=== PATIENT | female | born 1985 ===

== ENCOUNTER 2016-12-02 09:46 | Emergency (ER) | payer SELFPAY ==
[2016-12-02] MEDS ORDERED: Ondansetron 4 MG/2 ML SDV IVPUSH ONE ×2 (10:27→14:50)
[2016-12-02] MEDS ORDERED: Sodium Chloride 0.9% 10 ML Syringe FLUSH PRN (10:27)
[2016-12-02] MEDS ORDERED: Famotidine 20 MG/2 ML SDV IVPUSH ONE (10:27)
[2016-12-02] MEDS ORDERED: Sodium Chloride 0.9% 1,000 ML IV SCH (10:30)
[2016-12-02] MEDS: HYDROmorphone 1 MG/ML Syringe IM ONE ×2 (11:05→11:08)
[2016-12-02] MEDS ORDERED: HYDROmorphone 1 MG/ML Syringe IVPUSH ONE (11:08)
[2016-12-02] MEDS ORDERED: Metoclopramide 10 MG/2 ML SDV IVPUSH ONE (12:07)
--- NOTE | 2016-12-02 14:20 | US ---
Pelvic ultrasound: Multiple real-time images were obtained both transabdominally and transvaginally. Uterus is anteverted. Small exophytic lesion is seen off the uterine fundus which is felt compatible with subserosal fibroid measuring approximately 3.7 cm. Moderate amount of free fluid is seen within the pelvis. No discrete cyst or solid abnormality appreciated within the ovaries. Incidental nabothian cysts are present. Measurements: Uterus: Length 8.4 cm, AP height 4.6 cm , transverse with 5.8 cm Right ovary: 6.4 x 2.1 x 3.8 cm Left ovary: 3.8 x 2.6 x 2.5 cm Impression: 1. Moderate amount of free fluid within the pelvis. Etiology not seen but findings most likely represent nonvisualized ruptured cyst. 2. Incidental nabothian cyst. 3. 3.7 cm subserosal fundal fibroid. Diagnostic code #3
--- NOTE | 2016-12-02 14:46 | EDM.PDOC ---
ED HPI GI/ABDOMINAL - General Chief Complaint: Abdominal Pain Stated Complaint: LOWER ABDOMINAL PAIN Time Seen by Provider: 12/02/16 10:19 Source of Information: Reports: Patient, RN notes reviewed - History of Present Illness INITIAL COMMENTS - FREE TEXT/NARRATIVE: 31-year-old female comes in with pelvic and abdominal pain. This started last evening, got worse through the night and quite severe now this morning. She did take a pain pill last evening and then did take a pain pill again this morning. SHe has become nauseated this morning with some repetitive vomiting. The pain seemed to start right lower pelvis are now also having pain upper mid abdomen and left upper quadrant of abdomen. No chest pain or difficulty breathing. No fever or chills. No diarrhea. No unusual voiding symptomatology. Her last menstrual period about 2 weeks ago. - Related Data Allergies/ADRs: Allergies Allergy/AdvReac Type Severity Reaction Status Date / Time No Known Allergies Allergy Verified 12/02/16 10:07 Home Meds: Home Meds Warfarin [Coumadin] 2.5 mg PO DAILY 07/05/15 [History] Warfarin [Coumadin] 5 mg PO WEEKLY 07/05/15 [History] Lasix. 40 mg PO DAILY 09/08/15 [History] Hydrocodone/Acetaminophen [Hydrocodon-Acetaminophen 5-325] 1 tab PO TID PRN 08/20 [History] Ondansetron [Zofran ODT] 4 mg PO Q6H PRN #10 tab.dis 12/02/16 [Rx] Past Medical History Cardiovascular History: Reports: Heart Failure, Pacemaker Gastrointestinal History: Reports: Cholelithiasis Genitourinary History: Reports: Other (see below) Other Genitourinary History: "fibroids and cysts on both ovaries" PER DIEM RN History: Reports: - Infectious Disease History Infectious Disease History: Reports: Chicken pox - Past Surgical History Cardiovascular Surgical History: Reports: Valve replacement Social & Family History - Family History Family Medical History: Noncontributory - Tobacco Use Smoking Status *Q: Never Smoker Second Hand Smoke Exposure: No - Caffeine Use Caffeine Use: Reports: Coffee - Recreational Drug Use Recreational Drug Use: No ED ROS GENERAL - Review of Systems Review Of Systems: See Below Constitutional: Denies: fever, chills, diaphoresis HEENT: Reports: No symptoms Respiratory: Denies: Shortness of Breath, Pleuritic Chest Pain Cardiovascular: Denies: Chest pain GI/Abdominal: Reports: Abdominal pain, Nausea, Vomiting. Denies: Diarrhea, Hematochezia, Melena Musculoskeletal: Denies: shoulder pain, back pain, joint pain Skin: Reports: no symptoms Neurological: Reports: No Symptoms ED EXAM, GI/ABD - Physical Exam Exam: See Below General Appearance: alert, moderate distress Eyes: bilateral: normal appearance, EOMI Throat/Mouth: Normal inspection, Normal oropharynx Head: atraumatic. No: facial swelling Neck: supple, full range of motion Respiratory/Chest: no respiratory distress, lungs clear, normal breath sounds Cardiovascular: regular rate, rhythm GI/Abdominal: tenderness (Moderate tenderness left upper quadrant upper midabdomen, more severe tenderness right pelvis). No: guarding, rebound Extremities: normal inspection, normal range of motion. No: pedal edema, leg pain Course - Vital Signs Last Recorded V/S: Last Vital Signs Temp 97.1 F 12/02/16 10:01 Pulse 79 12/02/16 10:01 Resp 16 12/02/16 10:01 BP 124/92 H 12/02/16 10:01 Pulse Ox 98 12/02/16 10:01 - Orders/Labs/Meds Orders: Active Orders 24 hr Category Date Time Status Peripheral IV Care [RC] . DIRECTED Care 12/02/16 10:28 Active Sodium Chloride 0.9% [Normal Saline] 1,000 ml Med 12/02/16 10:30 Active IV ONETIME Sodium Chloride 0.9% [Saline Flush] Med 12/02/16 10:27 Active 10 ml FLUSH ASDIRECTED PRN Peripheral IV Insertion Adult [OM.PC] Stat Oth 12/02/16 10:27 Ordered Medication Orders Sodium Chloride (Normal Saline) 1,000 mls @ 999 mls/hr IV ONETIME [facility] Last Admin: 12/02/16 11:02 Dose: 999 mls/hr Sodium Chloride (Saline Flush) 10 ml FLUSH ASDIRECTED PRN PRN Reason: Keep Vein Open Last Admin: 12/02/16 11:14 Dose: 10 ml Labs: Laboratory Tests 12/02/16 12/02/16 12/02/16 Range/Units 11:00 11:00 11:00 WBC 9.71 (3.98-10.04) K/mm3 RBC 4.23 (3.98-5.22) M/mm3 Hgb 10.5 L (11.2-15.7) gm/L Hct 33.2 L (34.1-44.9) % MCV 78.5 L (79.4-94.8) fl MCH 24.8 L (25.6-32.2) pg MCHC 31.6 L (32.2-35.5) g/dl RDW Std Deviation 48.7 H (36.4-46.3) fL Plt Count 270 (182-369) K/mm3 MPV 10.4 (9.4-12.3) fl Neut % (Auto) 76.7 H (34.0-71.1) % Lymph % (Auto) 12.3 L (19.3-51.7) % [place] % (Auto) 9.6 (4.7-12.5) % Eos % (Auto) 1.1 (0.7-5.8) Baso % (Auto) 0.2 (0.1-1.2) % Neut # (Auto) 7.45 H (1.56-6.13) K/mm3 Lymph # (Auto) 1.19 (1.18-3.74) K/mm3 [place] # (Auto) 0.93 H (0.24-0.36) K/mm3 Eos # (Auto) 0.11 (0.04-0.36) K/mm3 Baso # (Auto) 0.02 (0.01-0.08) K/mm3 Sodium 138 (136-145) mEq/L Potassium 3.3 L (3.5-5.1) mEq/L Chloride 102 (98-107) mEq/L Carbon Dioxide 26 (21-32) mEq/L Anion Gap 13.3 (5-15) BUN 17 (7-18) mg/dL Creatinine 0.7 (0.55-1.02) mg/dL Est Cr Clr Drug Dosing TNP Estimated GFR (MDRD) > 60 (>60) mL/min BUN/Creatinine Ratio 24.3 H (14-18) Glucose 97 (74-106) mg/dL Calcium 9.2 (8.5-10.1) mg/dL Total Bilirubin 0.5 (0.2-1.0) mg/dL GGT 54 (5-55) U/L AST 19 (15-37) U/L ALT 20 (14-59) U/L Alkaline Phosphatase 96 (46-116) U/L C-Reactive Protein 0.8 (<1.0) mg/dL Total Protein 8.2 (6.4-8.2) g/dl Albumin 4.3 (3.4-5.0) g/dl Globulin 3.9 gm/dL Albumin/Globulin Ratio 1.1 (1-2) Lipase 290 (73-393) U/L HCG, Qual (NEGATIVE) 12/02/16 Range/Units 11:00 WBC (3.98-10.04) K/mm3 RBC (3.98-5.22) M/mm3 Hgb (11.2-15.7) gm/L Hct (34.1-44.9) % MCV (79.4-94.8) fl MCH (25.6-32.2) pg MCHC (32.2-35.5) g/dl RDW Std Deviation (36.4-46.3) fL Plt Count (182-369) K/mm3 MPV (9.4-12.3) fl Neut % (Auto) (34.0-71.1) % Lymph % (Auto) (19.3-51.7) % [place] % (Auto) (4.7-12.5) % Eos % (Auto) (0.7-5.8) Baso % (Auto) (0.1-1.2) % Neut # (Auto) (1.56-6.13) K/mm3 Lymph # (Auto) (1.18-3.74) K/mm3 [place] # (Auto) (0.24-0.36) K/mm3 Eos # (Auto) (0.04-0.36) K/mm3 Baso # (Auto) (0.01-0.08) K/mm3 Sodium (136-145) mEq/L Potassium (3.5-5.1) mEq/L Chloride (98-107) mEq/L Carbon Dioxide (21-32) mEq/L Anion Gap (5-15) BUN (7-18) mg/dL Creatinine (0.55-1.02) mg/dL Est Cr Clr Drug Dosing Estimated GFR (MDRD) (>60) mL/min BUN/Creatinine Ratio (14-18) Glucose (74-106) mg/dL Calcium (8.5-10.1) mg/dL Total Bilirubin (0.2-1.0) mg/dL GGT (5-55) U/L AST (15-37) U/L ALT (14-59) U/L Alkaline Phosphatase (46-116) U/L C-Reactive Protein (<1.0) mg/dL Total Protein (6.4-8.2) g/dl Albumin (3.4-5.0) g/dl Globulin gm/dL Albumin/Globulin Ratio (1-2) Lipase (73-393) U/L HCG, Qual Negative (NEGATIVE) Meds: Medications Generic Name Dose Route Start Last Admin Trade Name Freq PRN Reason Stop Dose Admin Sodium Chloride 1,000 mls @ 999 mls/hr 12/02/16 10:30 12/02/16 11:02 Normal Saline IV 999 mls/hr ONETIME [facility] Administration Sodium Chloride 10 ml 12/02/16 10:27 12/02/16 11:14 Saline Flush FLUSH 10 ml ASDIRECTED PRN Administration Keep Vein Open Discontinued Medications Generic Name Dose Route Start Last Admin Trade Name Freq PRN Reason Stop Dose Admin Famotidine 20 mg 12/02/16 10:27 12/02/16 11:15 Pepcid IVPUSH 12/02/16 10:28 20 mg ONETIME ONE Administration Hydromorphone HCl 1 mg 12/02/16 10:27 12/02/16 11:08 Dilaudid IM 12/02/16 10:28 Not Given ONETIME ONE Hydromorphone HCl 1 mg 12/02/16 11:08 12/02/16 11:11 Dilaudid IVPUSH 12/02/16 11:09 1 mg ONETIME ONE Administration Metoclopramide HCl 5 mg 12/02/16 12:07 12/02/16 12:13 Reglan IVPUSH 12/02/16 12:08 5 mg ONETIME ONE Administration Ondansetron HCl 4 mg 12/02/16 10:27 12/02/16 11:08 Zofran IVPUSH 12/02/16 10:28 4 mg ONETIME ONE Administration Ondansetron HCl 4 mg 12/02/16 14:50 Zofran IVPUSH 12/02/16 14:51 ONETIME ONE - Re-Assessments/Exams Free Text/Narrative Re-Assessment/Exam: 12/02/16 14:57 ECG did come back negative, white blood count was normal, other labs relatively normal. We did do pelvic ultrasound which did show free fluid in the pelvis, see radiology report for details. This is likely due from ruptured ovarian cyst. Her pain is much better after IV Dilaudid 1 mg IV. We've given 1 L of fluid. Discharge instructions as documented Departure - Departure Time of Disposition: 14:57 Disposition: Home, Self-Care 01 Condition: fair Clinical Impression: Ruptured ovarian cyst Prescriptions: Ondansetron [Zofran ODT] 4 mg PO Q6H PRN #10 tab.dis PRN Reason: Nausea/Vomiting Instructions: Ovarian Cyst, [id number] Referrals: PCP,Not In Area [Primary Care Provider] - Forms: ED Department Discharge Additional Instructions: Rest, drink plenty of water, Zofran if needed for further nausea or vomiting, recommend taking a Tylenol 500 mg along with one half tablet hydrocodone every 4 -6 hours as needed for severe pain, followup clinic if not much better within 2- 3 days, return to ED as needed - My Orders Last 24 Hours: My Active Orders 12/02/16 10:27 Sodium Chloride 0.9% [Saline Flush] 10 ml FLUSH ASDIRECTED PRN Peripheral IV Insertion Adult [OM.PC] Stat 12/02/16 10:28 Peripheral IV Care [RC] . DIRECTED 12/02/16 10:30 Sodium Chloride 0.9% [Normal Saline] 1,000 ml IV ONETIME - Assessment/Plan Last 24 Hours: My Active Orders 12/02/16 10:27 Sodium Chloride 0.9% [Saline Flush] 10 ml FLUSH ASDIRECTED PRN Peripheral IV Insertion Adult [OM.PC] Stat 12/02/16 10:28 Peripheral IV Care [RC] . DIRECTED 12/02/16 10:30 Sodium Chloride 0.9% [Normal Saline] 1,000 ml IV ONETIME
[2016-12-02 16:17] VITALS: BP 122/87
== END 2016-12-02 15:20 | disposition home or self-care (01) ==
LOC: JD.ED 09:46
DX: N83.201 Unspecified ovarian cyst, right side (principal); D26.1 Other benign neoplasm of corpus uteri; I50.9 Heart failure, unspecified; Z79.899 Other long term (current) drug therapy; Z95.0 Presence of cardiac pacemaker; Z95.2 Presence of prosthetic heart valve; Z79.01 Long term (current) use of anticoagulants
CPT/HCPCS: 36415; 76830; 80053; 82977; 83690; 84703; 85025; 86140; 96361; 96374; 96375; 99284; J1170; J2405; J2765; J7040; J7050